=== PATIENT | female | born 1945 | race Caucasian/White ===

== ENCOUNTER → 2017-01-02 | Outpatient (CLI) | payer MEDICARE, OTHER ==
[~2017-01-02] MED LIST: ASPIRIN81 MG PO; BYDUREON P2 MG/0.65 SUBCUT; BYSTOLIC10 MG PO; CALCIUM 600 +1 EACH PO; CATAPRES0.1 MG PO; CHLORTHALIDONE25 MG PO; DIOVAN80 MG PO; GLUCOPHAGE1000 MG PO; PERCOCET 325-51 TAB PO; PRAVACHOL40 MG PO; PRILOSEC40 MG PO; VITAMIN D2000 UNI1 PO; WELLBUTRIN XL150 MG PO
== END | disposition short-term general hospital (02) ==
LOC: CLORTH 12:47
DX: S42.232A 3-part fracture of surgical neck of left humerus, initial encounter for closed fracture (principal)

== ENCOUNTER 2017-01-05 11:50 | Emergency (ER) | payer MEDICARE, OTHER ==
[~2017-01-05] VITALS: Ht 154.9 cm; Wt 78.9 kg
[2017-01-05] MEDS ORDERED: WELLBUTRIN XL150 MG PO (12:32)
[2017-01-05] MEDS ORDERED: ASPIRIN81 MG PO (12:32)
[2017-01-05] MEDS ORDERED: BYDUREON P2 MG/0.65 SUBCUT (12:45)
[2017-01-05] MEDS ORDERED: GLUCOPHAGE1000 MG PO (12:46)
[2017-01-05] MEDS ORDERED: PRILOSEC40 MG PO (12:46)
[2017-01-05] MEDS ORDERED: PERCOCET 325-51 TAB PO (12:48)
[2017-01-05] MEDS ORDERED: PRAVACHOL40 MG PO (12:48)
[2017-01-05] MEDS ORDERED: CATAPRES0.1 MG PO (12:49)
[2017-01-05] MEDS ORDERED: CHLORTHALIDONE25 MG PO (12:49)
[2017-01-05] MEDS ORDERED: BYSTOLIC10 MG PO (12:49)
[2017-01-05] MEDS ORDERED: CALCIUM 600 +1 EACH PO (12:51)
[2017-01-05] MEDS ORDERED: VITAMIN D2000 UNI1 PO (12:53)
[2017-05-29] MEDS ORDERED: DIOVAN80 MG PO (19:03)
== END 2017-01-05 13:07 | disposition short-term general hospital (02) ==
LOC: ER 11:50
DX: G89.18 Other acute postprocedural pain (principal); M79.622 Pain in left upper arm; S42.202D Unspecified fracture of upper end of left humerus, subsequent encounter for fracture with routine healing; E11.9 Type 2 diabetes mellitus without complications; F32.9 Major depressive disorder, single episode, unspecified; K21.9 Gastro-esophageal reflux disease without esophagitis; E78.5 Hyperlipidemia, unspecified; I10 Essential (primary) hypertension; E55.9 Vitamin D deficiency, unspecified; Z88.8 Allergy status to other drugs, medicaments and biological substances
CPT/HCPCS: J1885; J2270

== ENCOUNTER → 2017-01-16 | Outpatient (CLI) | payer MEDICARE, OTHER | END | disposition short-term general hospital (02) | LOC: CLORTH 08:30 | DX: S42.242D 4-part fracture of surgical neck of left humerus, subsequent encounter for fracture with routine healing (principal) ==

== ENCOUNTER → 2017-02-13 | Outpatient (CLI) | payer MEDICARE, OTHER | END | disposition short-term general hospital (02) | LOC: CLORTH 12:09 | DX: Z47.89 Encounter for other orthopedic aftercare (principal); S42.242D 4-part fracture of surgical neck of left humerus, subsequent encounter for fracture with routine healing ==

== ENCOUNTER → 2017-03-13 | Outpatient (CLI) | payer MEDICARE, OTHER | END | disposition short-term general hospital (02) | LOC: CLORTH 09:55 | DX: S42.242D 4-part fracture of surgical neck of left humerus, subsequent encounter for fracture with routine healing (principal); M25.612 Stiffness of left shoulder, not elsewhere classified ==

== ENCOUNTER → 2017-04-10 | Outpatient (CLI) | payer MEDICARE, OTHER | END | disposition short-term general hospital (02) | LOC: CLORTH 12:48 | DX: S42.292S Other displaced fracture of upper end of left humerus, sequela (principal) ==

== ENCOUNTER → 2017-07-18 | Outpatient (CLI) | payer MEDICARE, OTHER | END | disposition short-term general hospital (02) | LOC: ULTR 08:34 → EDSTATUS 08:36 → CLCARD 08:38 | DX: I11.0 Hypertensive heart disease with heart failure (principal); I50.33 Acute on chronic diastolic (congestive) heart failure; N17.9 Acute kidney failure, unspecified; E11.9 Type 2 diabetes mellitus without complications; E78.5 Hyperlipidemia, unspecified ==